=== PATIENT | female | born 1990 | race Caucasian/White ===

== ENCOUNTER 2023-11-22 07:03 | Day surgery (SDC) | payer OTHER ==
[2023-11-16 14:14] VITALS: BP 114/80
[~2023-11-22] VITALS: Ht 157.5 cm; Wt 55.0 kg
[~2023-11-22 07:03] MED LIST: CEFAZOLIN SODIUM 2 GM/20 ML SYR IV SCH; DEXAMETHASONE SOD PHOS 4 MG/ML VIAL ONE; FAMOTIDINE 20 MG/ 2 ML VIAL ONE; IBLOOD GLUCOSE TEST STRIP 1 EA TEST VI PRN; IBUPROFEN800 MG PO; KETOROLAC TROMETHAMINE 30 MG/ML VIAL ONE; LACTATED RINGER'S 1,000 ML IV ONE; LACTATED RINGER'S 1,000 ML IV SCH; LIDOCAINE HCL 1% 5 ML SDV INJ ONE; LIDOCAINE HCL 4% 5 ML AMP ONE; METOCLOPRAMIDE HCL 10 MG/2 ML SDV ONE; MIDAZOLAM HCL 2 MG/2 ML VIAL ONE; ROCURONIUM BROMIDE 50 MG/5 ML SYR ONE; SUCCINYLCHOLINE IN 0.9% NACL 200 MG/10 ML SYRINGE ONE; SUGAMMADEX SODIUM 200 MG/2 ML ML ONE; fentaNYL citrate 100 MCG/2 ML VIAL ONE; ondansetron HCL 4 MG/2 ML VIAL ONE; propofoL 200 MG/20 ML VIAL ONE
[2023-11-22 07:15] VITALS: BP 98/74
[2023-11-22] MEDS ORDERED: MULTI VITAMIN1 EACH PO (07:18)
[2023-11-22] MEDS ORDERED: fentaNYL citrate 50 MCG/ML SDV IV PRN (07:45)
[2023-11-22] MEDS ORDERED: METOCLOPRAMIDE HCL 10 MG/2 ML SDV IV PRN ×2 (07:45→11:15)
[2023-11-22] MEDS ORDERED: ondansetron HCL 4 MG/2 ML VIAL IV PRN ×2 (07:45→11:15)
[2023-11-22] MEDS ORDERED: droPERidol 5 MG/2 ML VIAL IV PRN (07:45)
[2023-11-22] MEDS ORDERED: MORPHINE SULFATE 10 MG/ML VIAL IV PRN ×2 (07:45→11:15)
[2023-11-22] MEDS ORDERED: NALOXONE HCL 0.4 MG SYR IV PRN ×2 (07:45→11:15)
[2023-11-22] MEDS ORDERED: IBLOOD GLUCOSE TEST STRIP 1 EA TEST VI PRN (07:45)
[2023-11-22] MEDS ORDERED: PROCHLORPERAZINE EDISYLATE 10 MG/2 ML VIAL IV PRN (07:45)
--- NOTE | 2023-11-22 08:38 | NUR ---
0831-PROVIDED PT WITH WARM BLANKETS. NO OTHER NEEDS AT THIS TIME. CALL LIGHT WITHIN REACH.
[2023-11-22] MEDS ORDERED: propofoL 200 MG/20 ML VIAL ONE (09:25)
[2023-11-22] MEDS ORDERED: dexmedeTOMIDine HCl 200 MCG/2 ML VIAL ONE (09:57)
[2023-11-22] MEDS ORDERED: METOPROLOL TARTRATE 5 MG/5 ML VIAL ONE (10:07)
[2023-11-22] MEDS ORDERED: LACTATED RINGER'S 1,000 ML IV ONE (10:12)
[2023-11-22] MEDS ORDERED: FLUORESCEIN SODIUM 500 MG/5 ML ML ONE (10:33)
[2023-11-22] MEDS ORDERED: FAMOTIDINE 20 MG/ 2 ML VIAL IV PRN (11:15)
[2023-11-22] MEDS ORDERED: OXYCODONE HCL 5 MG TAB PO PRN (11:15)
[2023-11-22] MEDS ORDERED: MAGNESIUM HYDROXIDE/AL HYDROX 30 ML CUP PO PRN (11:15)
[2023-11-22] MEDS ORDERED: SIMETHICONE 125 MG TABLET CHEWABLE PO PRN (11:15)
--- NOTE | 2023-11-22 11:25 | NUR ---
11/22/23 1125 Bharti Smith 1115: BLOOD PRESSURE CHANGED FROM SMALL ADULT CUFF TO REGULAR ADULT CUFF. HOB IS ELEVATED. PATIENT REPORTS "I HAVE TO PEE." EDUCATION COMPLETE REGARDING MILLER CATHETER.
[2023-11-22 11:45] VITALS: BP 116/79
--- NOTE | 2023-11-22 11:47 | NUR ---
RED 1139: PT IS BACK TO DS FROM PACU. SHE IS REPORTING MILD NAUSEA, PAIN 6/10. SHE WOULD LIKE SOME SALTINES AND 7UP. SHE IS TOLERATING SIPS OF WATER. MOM IS AT THE BEDSIDE. CALL LIGHT WITHIN REACH. NO ADDITIONAL NEEDS OR CONCERNS.
[2023-11-22 12:34] VITALS: BP 111/74
[2023-11-22] MEDS ORDERED: SIMETHICONE 125 MG TABLET CHEWABLE PO SCH (13:00)
--- NOTE | 2023-11-22 13:37 | NUR ---
LE 1235-PT LAYING IN BED AWAKE. RESP EVEN AND UNLABORED. RATES PAIN 5/10. DENIES NAUSEA. LE 1237-PT UP TO RESTROOM. GAIT STEADY AND TOLERATED WELL. PT DENIE BEING DIZZY OR LIGHTHEADED. PT VOIDS 400ML OF BRIGHT YELLOW URINE LE 1242-PT BACK TO BED. PROVIDED PT WITH JELLO. LE 1247-PAIN MEDICATION GIVEN PER EMAR. NO OTHER NEEDS AT THIS TIME. CALL LIGHT WITHIN REACH.
[2023-11-22 13:46] VITALS: BP 121/64
--- NOTE | 2023-11-22 15:25 | NUR ---
LE 1330-PT SITTING UP IN BED. [id number] BROUGHT LUNCH TO PT. NO OTHER NEEDS AT THIS TIME. CALL LIGHT WITHIN REACH.
--- NOTE | 2023-11-22 15:27 | NUR ---
SOME NAUSEA. TOLERABLE AT THIS TIME. PT READY TO GO HOME. PT WILL GET DRESSED, FAMILY MEMBER IN ROOM WITH PT. CALL LIGHT WITHIN REACH.
--- NOTE | 2023-11-22 15:30 | NUR ---
LE 1402-WENT OVER DISCHARGE INSTRUCTIONS WITH PT AND FAMILY MEMBER. ALL QUESTIONS ANSWERED. WENT OVER POSTOP MEDICATIONS. RATES PAIN 3-4/10. SOME NAUSEA. PT STATES HAS NAUSEA MEDICATION IN THE CAR. PT AMBULATES TO WHEELCHAIR AND RIDE PROVIDED TO FRONT OF HOSPITAL WHERE FAMILY IS WAITING WITH THE CAR.
--- NOTE | 2023-11-28 22:06 | OR ---
[facility] [address] [place] [id number] Signed DATE OF OPERATION: 11/22/2023 SURGEON: Robin Burgess DO PREOPERATIVE DIAGNOSES: 1. Dysmenorrhea. 2. Pelvic congestion status post failed ovarian coiling procedure. 3. Abnormal uterine bleeding. POSTOPERATIVE DIAGNOSES: 1. Dysmenorrhea. 2. Pelvic congestion status post failed ovarian coiling procedure. 3. Abnormal uterine bleeding. 4. Pelvic adhesions. PROCEDURE PERFORMED: 1. Total laparoscopic hysterectomy. 2. Bilateral salpingectomy. 3. Cystoscopy. 4. Lysis of adhesions, minimal. EMPLOYEE BENEFITS INSURANCE AGENT: Mere Astorga MD ANESTHESIA: General. ESTIMATED BLOOD LOSS: 15 mL. SPECIMENS: Uterus, bilateral tubes, and cervix. COMPLICATIONS: None. PACKING: None. DRAINS: Electronically Signed By: ROBIN BURGESS DO (JD) 11/28/23 220 PATIENT NAME: MANSI BHAKTA OPERATIVE REPORT DATE OF : [birth year] REPORT #: [id number] PHYSICIAN: ROBIN BURGESS DO (JD) PCP: NO PRIMARY CARE PHYSICIAN REPORT IS CONFIDENTIAL AND NOT TO BE RELEASED WITHOUT AUTHORIZATION [facility] [address] [place], [place] [address], [place] [address] Signed Casas to gravity. FINDINGS: Normal upper abdomen. Small omental adhesion to the anterior abdominal wall at approximately the pelvic brim. Normal uterus, fallopian tubes, and ovaries. Ovarian coiling seen in the left ovarian vessels just under the peritoneal surface. Hemostasis with excellent apical support at the end of the procedure. Normal bladder with bilateral ureteral jets. INDICATIONS: Ms. Bhakta is a very pleasant 33-year-old female with a history of dysmenorrhea, pelvic congestion syndrome, and abnormal bleeding. She had an ovarian vein coiling procedure performed in [place] few years ago with minimal resolution of her symptoms. She requests definitive treatment with total laparoscopic hysterectomy, bilateral salpingectomy, and cystoscopy. Risks, benefits, and alternatives were discussed in detail with the patient. The patient understands and wishes to proceed with the procedure. TECHNIQUE: The patient was taken to the OR. A time-out was performed to confirm correct patient and correct procedure. General anesthesia was then established. The patient was prepped and draped in the dorsal lithotomy position with feet in Yellofin stirrups. ICPs were on and running. The patient received Ancef 2 g preoperatively and no heparin was indicated. A Casas catheter was inserted. A weighted speculum was placed in the vagina and the anterior lip of the cervix was grasped with an Allis clamp. The cervix was gently dilated using Hegar dilators. A VCare uterine manipulator was placed without difficulty. The surgeon's gloves were changed. Attention was turned to the abdomen. Just inferior to the umbilicus, the skin was infiltrated with 0.25% Marcaine with epinephrine and a curvilinear incision was made using a surgical scalpel. The fascia was grasped with hemostats, elevated, and entered sharply with Metzenbaum scissors. The fascial incision was slightly extended with Metzenbaum scissors and stay suture of 0 Vicryl was placed in the superior and inferior edge of the fascial incision. The peritoneum was then entered bluntly. A Andrzej operative port was placed and pneumoperitoneum was established. Assist ports of 5 mm in the left lower quadrant and an 8 mm expanding port placed in the right lower quadrant under direct visualization without complication. Omental adhesion to the anterior pelvic wall was noted and this was easily brought down with LigaSure device. Normal upper abdomen was identified. Attention was turned back to the pelvis. Ovarian vein coil could be seen through the peritoneum on the left. The left utero-ovarian ligament was fulgurated and divided and the left fallopian tube was divided along the mesosalpinx. The utero-ovarian ligament did have some oozing and it was noted that an incomplete seal was performed of the utero-ovarian ligament due to an existing ovarian vein coil. This area was then ligated Electronically Signed By: ROBIN DUMONT) DO SERVANDO 11/28/23 2206 PATIENT NAME: MANSI BHAKTA OPERATIVE REPORT DATE OF : [birth year] REPORT #: [id number] PHYSICIAN: ROBIN BURGESS) PCP: NO PRIMARY CARE PHYSICIAN REPORT IS CONFIDENTIAL AND NOT TO BE RELEASED WITHOUT AUTHORIZATION [facility] [address], [place] [address] Signed with an Endostitch device with excellent hemostasis appreciated. The process was repeated on the right with division of the fallopian tube and fulguration division of the right utero-ovarian ligament, this time with excellent hemostasis with fulguration alone. The right round ligament was fulgurated and divided in the mid portion and the leaves of the broad ligament were divided. The anterior leaf was divided from the midportion of the round ligament to the edge of the vaginal cup anteriorly and dissection was carried across the edge of the vaginal cup. The posterior leaf was then divided from the midportion of the round to the angle of the uterosacral ligament across the posterior edge of the vaginal cuff. The uterine vessels were identified, fulgurated and divided. The process was repeated on the left side with division of the leaves of the broad ligament. Identification, fulguration, and division of the left uterine vessels. There was significantly more collaterals and congestion noted on the left. Excellent hemostasis was appreciated. Colpotomy was performed using Sonicision device and the uterus and cervix were delivered through the vagina and sent to Pathology for further evaluation. The fallopian tubes had previously been sent. Pneumoperitoneum was reestablished by placing a wet lap sponge inside of a glove and carefully placing this in the vagina. The pelvis was irrigated and found to be hemostatic. Colpotomy was reapproximated using V-Loc suture with an Endostitch device with careful attention to incorporate the uterosacral ligaments bilaterally as well as to incorporate the vaginal epithelium with each bite. Excellent hemostasis and apical support was appreciated. The pelvis was again irrigated and found to be hemostatic. Pneumoperitoneum was reduced. Trocars were removed and infraumbilical fascia was reapproximated using 0 Vicryl in a running nonlocked manner. Stay sutures were used to reinforce the fascial closure. Skin was reapproximated with 3-0 Vicryl in a running subcuticular stitch with excellent hemostasis and cosmesis appreciated. Attention was then turned to cystoscopy. The Casas catheter was removed and a 70-degree cystoscope placed in the urethral meatus and advanced under direct visualization into the bladder. Normal bladder with bilateral ureteral jets noted. The bladder was drained. Casas catheter was reinserted and the patient was taken to PACU in good and stable condition. Sponge, needle, and instrument count was correct x2 at the end of the procedure. Dr. Astorga was present and participated in all portions of the procedure. DO CHUCK Mc/VIVIANE /[id number] Electronically Signed By: ROBIN BURGESS DO (JD) 11/28/23 220 PATIENT NAME: MANSI BHAKTA OPERATIVE REPORT DATE OF : [birth year] REPORT #: [id number] PHYSICIAN: ROBIN BURGESS DO (JD) PCP: NO PRIMARY CARE PHYSICIAN REPORT IS CONFIDENTIAL AND NOT TO BE RELEASED WITHOUT AUTHORIZATION [address] [place] [address] Signed Copies: ~ Electronically Signed By: ROBIN BURGESS DO (JD) 11/28/232205 PATIENT NAME: MANSI BHAKTA OPERATIVE REPORT DATE OF : [birth year] REPORT #: [id number] PHYSICIAN: BURGESS,ROBIN (JUN) DO PCP: NO PRIMARY CARE PHYSICIAN REPORT IS CONFIDENTIAL AND NOT TO BE RELEASED WITHOUT AUTHORIZATION
--- NOTE | 2023-11-29 13:17 | PATH ---
[facility] [address] [place], [place] [address] Signed SPECIMEN(S): A UTERUS, CERVIX, BILATERAL TUBES SPECIMEN SOURCE: A. UTERUS, CERVIX, BILATERAL TUBES CLINICAL HISTORY: Dysmenorrhea; AUB; pelvic congestion syndrome FINAL PATHOLOGIC DIAGNOSIS: Uterus, cervix, bilateral fallopian tubes, hysterectomy with bilateral salpingectomy: - Unremarkable endocervical and ectocervical epithelia. - Uterus with weakly proliferative endometrium. - Bilateral fallopian tubes within normal limits. - Paratubal cysts. TWK MICROSCOPIC EXAMINATION: Histologic sections of all submitted blocks are examined by light microscopy. These findings, together with the gross examination, support the pathologic diagnosis. GROSS DESCRIPTION: The specimen, labeled and designated "Yony, uterus, cervix, bilateral fallopian tubes," is received in formalin and consists of a ortiz-pink uterus (8.2 x 5.3 x 4.2 cm, 69 g) with attached cervix (3.3 x 3.0 cm) and detached bilateral, fimbriated fallopian tubes (5.5 cm in length by 0.4 cm in diameter and 5.2 cm in length by 0.4 cm in diameter). The ectocervix is ortiz-pink with a slightly dilated cervical os (0.6 x 0.4 cm). The specimen is bivalved to reveal a ortiz-pink endocervical canal (1.2 cm in length) with herringbone architecture. The endometrial cavity (4.0 x 2.2 x 0.2 cm) is ortiz-pink and smooth. Both halves are serially sectioned to reveal ortiz-pink, grossly unremarkable cut surfaces. With fimbriated fallopian tubes are sectioned to reveal ortiz-pink surfaces with pinpoint lumen and multiple smooth-walled cysts (1.2 cm in greatest dimension) filled with translucent fluid. Director Hardware sections are submitted in A1-A5. Cassette Summary: (A1) anterior and posterior ectocervix and endocervical canal, PATIENT NAME: MANSI ALEJANDRA PATHOLOGY DATE OF : [birth year] REPORT #: [id number] PHYSICIAN: JOHN PATHOLOGY PCP: NO PRIMARY CARE PHYSICIAN REPORT IS CONFIDENTIAL AND NOT TO BE RELEASED WITHOUT AUTHORIZATION [facility] [address] [place], [place] [address] Signed insurance verification representative (A2) anterior endomyometrium, insurance verification representative (A3) posterior endomyometrium, insurance verification representative (A4) insurance verification representative cross-sections of first measured fallopian tube and entire bisected fimbria (A5) insurance verification representative cross-sections of second measured fallopian tube and entire bisected fimbria KG (under the direct supervision of a pathologist) The Gross Description was prepared using a voice recognition system. The report was reviewed for accuracy; however, sound-alike word errors, addition and/or deletions may occur. If there is any question about this report, please contact Client Services. ADDITIONAL NOTES: Immunohistochemical and/or in situ hybridization studies if performed in this case included appropriate positive controls that reacted as expected. This test was developed and its performance characteristics determined by [facility]. It has not been cleared or approved by the U.S. Food and Drug Administration. The FDA has determined that such clearance or approval is not necessary. This test is used for clinical purposes. It should not be regarded as investigational or for research. [facility] is certified under the Clinical Laboratory Improvement Amendments of 1988 (CLIA) as qualified to perform high complexity clinical laboratory testing. PERFORMING LABORATORY: Technical component was performed by [facility], [address] [place] [address] (CLIA# [id number]). Professional interpretation was performed by [facility], [address] [place] [address] (CLIA#:[id number]). Diagnostician: New Summers MD Pathologist Electronically Signed 11/29/2023 Copies: ~ PATIENT NAME: MANSI ALEJANDRA PATHOLOGY DATE OF : [birth year] REPORT #: [id number] PHYSICIAN: [facility] PCP: NO PRIMARY CARE PHYSICIAN REPORT IS CONFIDENTIAL AND NOT TO BE RELEASED WITHOUT AUTHORIZATION
== END 2023-11-22 14:02 | disposition home or self-care (01) ==
LOC: DS 07:03
PROVIDERS: ATTEND Obstetrics & Gynecology
PROC: 0UT94ZZ Resection of Uterus, Percutaneous Endoscopic Approach (ICD-10-PCS; principal; 2023-11-22 09:00)
PROC: 0UT24ZZ Resection of Bilateral Ovaries, Percutaneous Endoscopic Approach (ICD-10-PCS; 2023-11-22 09:00)
DX: N83.8 Other noninflammatory disorders of ovary, fallopian tube and broad ligament (principal); N94.6 Dysmenorrhea, unspecified; N93.9 Abnormal uterine and vaginal bleeding, unspecified; N94.89 Other specified conditions associated with female genital organs and menstrual cycle; N73.6 Female pelvic peritoneal adhesions (postinfective)
CPT/HCPCS: 00840; 88307; A9270; J0330; J0690; J1100; J1885; J2250; J2405; J2704; J2765; J3010; J3490; J7121